=== PATIENT | female | born 1965 | race Caucasian/White ===

== ENCOUNTER → 2018-08-14 | Outpatient (CLI) | payer OTHER | END | disposition home or self-care (01) | LOC: CFH 15:49 | PROVIDERS: ATTEND Specialist | DX: Z12.31 Encounter for screening mammogram for malignant neoplasm of breast (principal); Z80.3 Family history of malignant neoplasm of breast | CPT/HCPCS: 77063; 77067 ==

== ENCOUNTER 2019-08-31 15:23 | Outpatient (CLI) | payer OTHER | END 2019-08-31 23:59 | disposition home or self-care (01) | LOC: CFH 15:23 | PROVIDERS: ATTEND Specialist | DX: Z02.9 Encounter for administrative examinations, unspecified (principal) ==

== ENCOUNTER → 2019-10-15 | Outpatient (CLI) | payer OTHER | END | disposition home or self-care (01) | LOC: CFH 09:49 | PROVIDERS: ATTEND Specialist | DX: Z12.31 Encounter for screening mammogram for malignant neoplasm of breast (principal); N64.89 Other specified disorders of breast | CPT/HCPCS: 77063; 77067 ==

== ENCOUNTER → 2019-11-04 | Outpatient (CLI) | payer OTHER | END | disposition home or self-care (01) | LOC: CFH 09:44 | PROVIDERS: ATTEND Specialist | DX: N63.12 Unspecified lump in the right breast, upper inner quadrant (principal); R92.8 Other abnormal and inconclusive findings on diagnostic imaging of breast | CPT/HCPCS: 76642; 77065 ==